=== PATIENT | male | born 1980 | race African-American/Black ===

== ENCOUNTER 2018-05-13 15:24 | Inpatient (IN) | payer OTHER ==
[~2018-05-13] VITALS: Ht 175.3 cm; Wt 95.3 kg
[2018-05-13] MEDS ORDERED: LABETALOL HCL 20MG/4ML CARPUJECT IV ONE (16:30)
[2018-05-13] MEDS ORDERED: LABETALOL 5MG/ML SYR 20 MG/4 ML SYRINGE IV ONE (17:15)
[2018-05-13 17:20] LABS: BASOPHILS % 0.8 % (0.0-2.0); EOSINOPHILS % 1.8 % (0.0-5.0); HEMATOCRIT. 50.7 % (42.0-52.0); HEMOGLOBIN. 15.7 g/dL (14.0-18.0); LYMPHOCYTES % 27.8 % (20.0-50.0); MEAN CORPUSCULAR HEMOGLOBIN 22.4 pg (28.0-32.0); MEAN CORPUSCULAR VOLUME 72.2 fL (80.0-94.0); MEAN PLATELET VOLUME 9.1 fl (7.4-10.4); MONOCYTES % 9.5 % (2.0-8.0); NEUTROPHILS % 60.1 % (40.0-76.0); PLATELET 279 x1000/uL (130-400); RED BLOOD CELL COUNT 7.03 mill/uL (4.7-6.1); RED CELL DISTRIBUTION WIDTH 21.8 % (11.6-14.6)
[2018-05-13 17:29] LABS: CHLORIDE 103 mEq/L (98-107)
[2018-05-13 17:29] LABS: *AMPHETAMINES SCREEN URINE NEGATIVE (NEGATIVE); *BARBITURATES SCREEN URINE NEGATIVE (NEGATIVE); *BENZODIAZEPINES SCREEN URINE NEGATIVE (NEGATIVE); *COCAINE SCREEN URINE NEGATIVE (NEGATIVE); METHADONE URINE SCREEN NEGATIVE (NEGATIVE)
[2018-05-13 17:30] LABS: CANNABINOID URINE SCREEN NEGATIVE (NEGATIVE); OPIATES URINE SCREEN NEGATIVE (NEGATIVE); PHENCYCLIDINE URINE SCREEN NEGATIVE (NEGATIVE)
[2018-05-13] MEDS ORDERED: LABETALOL HCL 20MG/4ML CARPUJECT IV NR (17:30)
[2018-05-13 17:33] LABS: INR 1.1; PARTIAL THROMBOPLASTIN TIME 27.5 sec (23.4-31.0); PROTHROMBIN TIME 11.5 sec (9.1-11.1)
[2018-05-13] MEDS ORDERED: DIPHENHYDRAMINE 50MG/ML VIAL IV PRN (20:15)
[2018-05-13] MEDS ORDERED: HYDRALAZINE 20MG/ML VIAL IV PRN (20:15)
[2018-05-13] MEDS ORDERED: LORAZEPAM 2MG/ML CPJ IV PRN (20:15)
[2018-05-13] MEDS ORDERED: GUAIFENESIN 200MG/10ML SUGAR FREE UDC PO PRN (20:15)
[2018-05-13] MEDS ORDERED: HYDROCODONE/ACETAMINOPHEN 10/325MG TABLET PO PRN (20:15)
[2018-05-13] MEDS ORDERED: MAGNESIUM/ALUMINUM HYDROXIDE/SIMETHICONE 30ML UDC PO PRN (20:15)
[2018-05-13] MEDS ORDERED: ACETAMINOPHEN 325MG TABLET PO PRN (20:15)
[2018-05-13] MEDS ORDERED: HYDROMORPHONE HCL/PF 2MG/ML CPJ IV PRN (20:15)
[2018-05-13] MEDS ORDERED: ONDANSETRON HCL 4MG/2ML INJ IV PRN (20:15)
[2018-05-13] MEDS ORDERED: IPRATROPIUM/ALBUTEROL 0.5-3(2.5)MG/3ML NEB INH PRN (20:15)
[2018-05-13] MEDS ORDERED: DOCUSATE SODIUM 100MG CAPSULE PO PRN (20:15)
[2018-05-14 00:34] LABS: CREATINE KINASE MB FRACTION 4.1 ng/mL (0.5-3.6)
[2018-05-14 01:40] VITALS: BP 153/98
[2018-05-14 04:00] VITALS: BP 151/102
[2018-05-14] MEDS: SODIUM CHLORIDE 0.9% INJ 3ML FLUSH IVF SCH ×3 (05:17→21:21)
[2018-05-14] MEDS: CLONIDINE 0.1MG TABLET PO PRN (06:31)
[2018-05-14 07:24] LABS: BASOPHILS % 0.7 % (0.0-2.0); EOSINOPHILS % 3.1 % (0.0-5.0); HEMATOCRIT. 46.4 % (42.0-52.0); HEMOGLOBIN. 14.6 g/dL (14.0-18.0); LYMPHOCYTES % 29.4 % (20.0-50.0); MEAN CORPUSCULAR HEMOGLOBIN 22.6 pg (28.0-32.0); MEAN CORPUSCULAR VOLUME 71.6 fL (80.0-94.0); MEAN PLATELET VOLUME 8.9 fl (7.4-10.4); MONOCYTES % 12.8 % (2.0-8.0); PLATELET 243 x1000/uL (130-400); RED BLOOD CELL COUNT 6.47 mill/uL (4.7-6.1); RED CELL DISTRIBUTION WIDTH 21.3 % (11.6-14.6)
[2018-05-14 07:46] VITALS: BP 144/102
[2018-05-14] MEDS: ASPIRIN 81MG EC TABLET PO SCH (09:08)
[2018-05-14] MEDS: ENOXAPARIN 30MG/0.3ML SYR SUBCUT SCH ×2 (09:08→21:20)
[2018-05-14 10:14] LABS: CHLORIDE 107 mEq/L (98-107)
[2018-05-14 10:35] LABS: CREATINE KINASE 586 IU/L (39-308)
[2018-05-14 10:36] LABS: LDL CHOLESTEROL 109 mg/dL (5-100)
[2018-05-14 10:37] LABS: HDL CHOLESTEROL 30 mg/dL (40-59)
[2018-05-14 10:42] LABS: CREATINE KINASE MB FRACTION 4.1 ng/mL (0.5-3.6)
[2018-05-14 12:00] VITALS: BP 140/70
[2018-05-14] MEDS: HYDROCHLOROTHIAZIDE 12.5MG CAPSULE PO SCH (13:28)
[2018-05-14 18:00] VITALS: BP 128/82
[2018-05-14 20:00] VITALS: BP 145/90
[2018-05-14] MEDS ORDERED: ATORVASTATIN CALCIUM 20MG TABLET PO SCH (21:00)
[2018-05-15] VITALS: BP 168/115
[2018-05-15 04:00] VITALS: BP 146/108
[2018-05-15] MEDS: CLONIDINE 0.1MG TABLET PO PRN ×2 (04:10→12:21)
[2018-05-15] MEDS: SODIUM CHLORIDE 0.9% INJ 3ML FLUSH IVF SCH ×2 (05:36→12:22)
[2018-05-15] MEDS ORDERED: AMLODIPINE 10MG TABLET PO SCH (09:00)
[2018-05-15] MEDS: HYDROCHLOROTHIAZIDE 12.5MG CAPSULE PO SCH (09:21)
[2018-05-15] MEDS: ASPIRIN 81MG EC TABLET PO SCH (09:21)
[2018-05-15] MEDS: ENOXAPARIN 30MG/0.3ML SYR SUBCUT SCH (09:22)
[2018-05-15 11:15] VITALS: BP 143/103
[2018-05-15 12:21] VITALS: BP 150/113
[2018-05-15 13:44] VITALS: BP 150/109
[2018-05-15 15:54] VITALS: BP 150/100
== END 2018-05-15 16:40 | disposition home or self-care (01) | DRG 70 ==
LOC: ER 15:24 → 6WST 19:58 → EDBEDREQ 20:05 → EDBEDREQTM 20:05 → ENRESERV 05-14 00:11
PROVIDERS: ADMIT Internal Medicine; ATTEND Internal Medicine
DX: G93.41 Metabolic encephalopathy (principal); E43 Unspecified severe protein-calorie malnutrition; G45.9 Transient cerebral ischemic attack, unspecified; M62.82 Rhabdomyolysis; E78.5 Hyperlipidemia, unspecified; I12.9 Hypertensive chronic kidney disease with stage 1 through stage 4 chronic kidney disease, or unspecified chronic kidney disease; R74.0 Nonspecific elevation of levels of transaminase and lactic acid dehydrogenase [LDH]; N18.9 Chronic kidney disease, unspecified; Z82.49 Family history of ischemic heart disease and other diseases of the circulatory system; Z91.19 Patient's noncompliance with other medical treatment and regimen; Z68.31 Body mass index [BMI] 31.0-31.9, adult
CPT/HCPCS: 36415; 70551; 71045; 80061; 80305; 82550; 82553; 84439; 84443; 84484; 93005; 93306; 99285; J1650; J3490